=== PATIENT | female | born 1945 | race African-American/Black ===

== ENCOUNTER → 2020-06-03 | Day surgery (SDC) | payer OTHER, MEDICARE ==
--- NOTE | 2020-05-31 16:21 | RAD REPORT ---
EXAM DESCRIPTION: RAD - Chest Pa And Lat (2 Views) - 05/31/2020 4:15 pm CLINICAL HISTORY: pre op Chest pain. COMPARISON: Chest Pa And Lat (2 Views) dated 12/26/2018; Chest Single View dated 10/08/2017; Chest Pa And Lat (2 Views) dated 10/04/2017; Chest Single View dated 10/02/2017 FINDINGS: Pulmonary interstitial markings are prominent bilaterally suspicious for mild interstitial pulmonary edema. The heart is moderately enlarged in size. No displaced fractures. IMPRESSION: Mild to moderate CHF pattern is suspected.
[2020-05-31 17:04] LABS: Basophils % 0.3 % (0-1.3); Hematocrit 35.2 % (36.0-45.0); Lymphocytes % 13.8 % (15.3-44.8); MPV 8.6 fL (7.6-11.3); RBC Red Blood Cell Count 3.36 M/uL (3.86-4.86)
[2020-05-31 17:07] LABS: Protime INR 1.02
[2020-05-31 17:34] LABS: Potassium 3.7 mmol/L (3.5-5.1)
[~2020-06-03] MED LIST: ATROPINE SULF 1 MG/10 ML SYR IV ONE; FENTANYL CITR 100 MCG/2 ML ONE; HEPA 1000U/500MLS 2,000 UNIT/1,000 ML BAG IV ONE; HEPARIN 5000 UNIT/ML 1 ML VIAL ONE; LIDOCAINE 1% 20 ML MDV ONE; MIDAZOLAM HCL 2 MG/2 ML INJ ONE; NA CHLORIDE 0.9% 100 ML IV ONE; NA CHLORIDE 0.9% 500 ML ONE; NICARDIPINE HCL 25 MG/10 ML IV ONE; NITROGLYCERIN 100 MCG/ML SYR (for cath lab use only) IV ONE; NITROGLYCERIN/D5W 25 MG/250 ML BTL IV ONE; ONDANSETRON 4 MG/2 ML VIAL ONE
--- OUTSIDE RECORDS SUMMARY | 2020-06-03 10:08 | XMS REPORT | Clinical Summary ---
:1945 Author Organization [facility] Address [address] [place] [address] Care Team Providers Name Role Phone MD Per Primary Care Provider Allergies Active Allergy Reactions Severity Noted Date Comments Codeine High 09/06/2016 Penicillins High 09/06/2016 Medications Medication Sig Dispensed Refills Start Date End Date Status calcium acetate Take 1,334 mg by 0 Active (PHOSLO) 667 mg mouth 3 (three) capsule times a day with meals. folic acid/vit B Take by mouth. 0 Active complex and C (ALY-HARRISON ORAL) aspirin (ECOTRIN) 81 Take 81 mg by 0 Active MG enteric coated mouth daily. tablet calcium carbonate Chew 1 tablet 0 Active (TUMS) 200 mg calcium daily. (500 mg) chewable tablet Active Problems Problem Noted Date ESRD (end stage renal disease) 2017 MWF 03/12/2018 Last Assessment & Plan: E. Bedside duplex performed by me suggests I have offered continued ergonomic hand exercises or revision of the AVF. I have advised against going to a vein c enter in regards to her swelling. Plan: Continue with ergonomic hand exerc ises for 1 month. Phone check in 1 month, if not better then bilateral arm EMG and arteriograms. Then probably banding. Lymphedema treatments. Chronic obstructive pulmonary disease 02/21/2017 MIHIR (obstructive sleep apnea)- severe 02/21/2017 Morbid obesity 02/21/2017 Pulmonary HTN 09/06/2016 Lymphedema 09/06/2016 Essential hypertension 09/06/2016 Chronic diastolic congestive heart failure 09/06/2016 Encounters Date Type Specialty Care Team Description 01/18/2020 Emergency Emergency Medicine Micah Damico ess of breath (Primary Dx); Fan, MD End stage renal disease on dialysis (HCC) after 06/03/2019 Family History Medical History Relation Name Comments Heart failure Father age 50 Diabetes Mother Hypertension Sister Migraines Sister No Known Problems Sister Relation Name Status Comments Father age 50 Mother Alive pacemaker Sister Alive Sister Alive Sister Alive Social History Tobacco Use Types Packs/Day Years Used Date Never Smoker Smokeless Tobacco: Never Used Alcohol Use Drinks/Week oz/Week Comments Yes occasional wine Sex Assigned at Date Recorded Not on file Job Start Date Occupation Industry Not on file Not on file Not on file Travel History Travel Start Travel End No recent travel history available. Last Filed Vital Signs Vital Sign Reading Time Taken Comments Blood Pressure 116/78 01/18/2020 1:30 PM CDT Pulse 74 01/18/2020 1:30 PM CDT Temperature 36.9 C (98.4 F) 01/18/2020 12:21 PM CDT Respiratory Rate 14 01/18/2020 1:30 PM CDT Oxygen Saturation 93% 01/18/2020 1:30 PM CDT Inhaled Oxygen Concentration - - Weight 127 kg (280 lb) 01/18/2020 12:11 PM CDT Height 157.5 cm (5' 2") 01/18/2020 12:11 PM CDT Body Mass Index 51.21 01/18/2020 12:11 PM CDT Plan of Treatment Health Maintenance Due Date Last Done Comments BREAST CANCER SCREENING 1996 COLONOSCOPY SCREENING 1996 SHINGLES VACCINES (#1) 1996 65+ PNEUMOCOCCAL VACCINE (1 of 2 - PCV13) 2011 INFLUENZA VACCINE 05/18/2020 Implants Implanted Type Area Online Merchandiser Device Shelf Model / Identifier Expiration Serial / Date Lot Catheter Dialysis Glidepath [id number] Symmetric Tip - [id number] Implantable N/A: N/A BARD PERIPHERAL [id number] / Implanted: 10/12/2017 at [facility] (Quantity not on file) In fusion Ports VASCULAR / or Accessories Catheter Dialysis Glidepath [id number] Symmetric Tip - [id number] Implantable N/A: N/A BARD PERIPHERAL [id number] / Implanted: 10/13/2017 at [facility] (Quantity not on file) In fusion Ports VASCULAR / or Accessories Clip Ligtng Jony Hemoclip Plus W/ Tape Ti - [id number] Medica l Clips Left: WECK CLOSURE 10/08/2022 [id number] / Implanted: Qty: 2 on 04/18/2018 by Max Peterson MD at [facility] for Internal Arm, SYSTEMS / Use Upper [id number] Kit Cath Hemodialysys Chronc Prcrv 15.5fr 36cm Dura-Flow - L [id number] Surgical N/A: N/A ANGIODYNAMICS 11/14/2017 [id number] / Implanted: 10/12/2017 at [facility] (Quantity not on file) Implants ; INC / Expanders; [id number] Extenders; Surgical Wires Procedures Procedure Name Priority Date/Time Associated Comments Diagnosis XR CHEST 1 VW PORTABLE STAT 01/18/2020 12:41 R esults for this PM CDT procedure are i n the results section. ECG ED PRELIMINARY Routine 01/18/2020 12:41 Resul ts for this INTERPRETATION PM CDT procedure are in the results section. ESTIMATED GFR STAT 01/18/2020 12:35 Results fo r this PM CDT procedure are i n the results section. COMPREHENSIVE METABOLIC STAT 01/18/2020 12:35 Results for this PANEL PM CDT procedure are i n the results section. HC COMPLETE BLD COUNT STAT 01/18/2020 12:35 Re sults for this W/AUTO DIFF PM CDT procedure are i n the results section. ECG 12-LEAD STAT 01/18/2020 12:16 Results for this PM CDT procedure are i n the results section. after 06/03/2019 Results XR Chest 1 Vw Portable (01/18/2020 12:41 PM CDT) Specimen Narrative Performed At EXAMINATION: XR CHEST 1 VW PORTABLE [facility] CLINICAL HISTORY: SOB COMPARISON: 01/20/2019 IMPRESSION: Heart and mediastinum remain prominent. Central pulmon lovely vascular enlargement again seen. No acute consoli dation noted. RM-PRACWL Procedure Note Hm Interface, Radiology Results Incoming - 01/18/2020 12:47 PM CDT EXAMINATION: XR CHEST 1 VW PORTABLE CLINICAL HISTORY: SOB COMPARISON: 01/20/2019 IMPRESSION: Heart and mediastinum remain prominent. Central pulmonary vascular enlargement again seen. No acute consolidation noted. RM-PRACWL Performing Organization Address City/State/Zipcode Phone Number [facility] [address] [place] [address] ECG ED Preliminary Interpretation - Not an Order (01/18/2020 12:41 PM CDT) Narrative Performed At Micah Damico MD 0 1:25 PM ECG ED Preliminary Interpretation - Not an Order Performed by: Micah Damico MD Authorized by: Micah Damico M D ECG reviewed by ED Physician in the abse nce of a insurance investigator: yes Previous ECG: Previous ECG: Compared to current Comparison ECG info: 01/20/2019 Similarity: No change Interpretation: Interpretation: non-specific Quality: Tracing quality: Limited by artifac t Rate: ECG rate: 83 ECG rate assessment: normal Rhythm: Rhythm: sinus rhythm Ectopy: Ectopy: PVCs QRS: QRS axis: Normal Conduction: Conduction: normal ST segments: ST segments: Normal T waves: T waves: non-specific Estimated GFR (01/18/2020 12:35 PM CDT) Estimated GFR 6 (A) mL/min/1.73 [facility] Comment: m2 [facility] Catergory Units Interpretation [facility] G1 >=90 Normal or high CENTER G2 60-89 Mildly decreased G3a 45-59 Mildly to moderately decreas ed G3b 30-44 Moderately to severely decre ased G4 15-29 Severely decreased G5 <15 Kidney failure The eGFR was calculated using the Chronic Kidney Disea se Epidemiology Collaboration (CKD-EPI) equation. Interpretation is based on recommendations of the National Kidney Foundation-Kidney Disease Outcomes Tyler lity Initiative (NKF-KDOQI) published in 2014. Specimen Performing Organization Address City/State/Zipcode Phone Number DEPARTMENT OF PATHOLOGY AND [facility] [address] [place] [address] [facility] [address] [place], [place] [id number] [place] [address] CBC with platelet and differential (01/18/2020 12:35 PM CDT) Pathologist Sig nature WBC 6.81 4.50 - 11.00 k/uL [facility] RBC 3.25 (L) 4.20 - 5.50 m/uL [facility] HGB 11.0 (L) 12.0 - 16.0 g/dL [facility] HCT 34.3 (L) 37.0 - 47.0 % [facility] MCV 105.5 (H) 82.0 - 100.0 fL [facility] MCH 33.8 27.0 - 34.0 pg [facility] MCHC 32.1 31.0 - 37.0 g/dL [facility] RDW - SD 55.8 (H) 37.0 - 55.0 fL [facility] MPV 9.9 8.8 - 13.2 fL [facility] Platelet count 130 (L) 150 - 400 k/uL [facility] Neutrophils 60.5 39.0 - 69.0 % [facility] Lymphocytes 26.0 25.0 - 45.0 % [facility] Monocytes 8.5 0.0 - 10.0 % [facility] Eosinophils 4.7 0.0 - 5.0 % [facility] Basophils 0.3 0.0 - 1.0 % [facility] Specimen Blood Performing Organization Address City/State/Zipcode Phone Number DEPARTMENT OF PATHOLOGY AND 82[facility]. [address] [place] [address] [facility] [address] Comprehensive metabolic panel (01/18/2020 12:35 PM CDT) Pathologist Sig nature Sodium 140 128 - 145 mEq/L [facility] Potassium 4.0 3.6 - 5.1 mEq/L [facility] CO2 32 18 - 33 mEq/L [facility] Chloride 97 (L) 98 - 108 mEq/L [facility] Glucose 89 73 - 118 mg/dL [facility] Calcium 9.4 8.0 - 10.3 [facility] mg/dL [facility] BUN 37 (H) 7 - 22 mg/dL [facility] Creatinine 7.6 (H) 0.5 - 0.9 mg/dL [facility] Alkaline phosphatase 45 42 - 141 U/L [facility] ALT 16 10 - 47 U/L [facility] AST 17 11 - 38 U/L [facility] Total bilirubin 0.5 0.2 - 1.6 mg/dL [facility] Albumin 3.7 3.3 - 5.5 g/dL [facility] Protein 7.5 6.4 - 8.1 g/dL [facility] Anion gap 11@ANIO 7 - 15 mEq/L [facility] A/G ratio 1.0 0.7 - 3.8 [facility] Specimen Blood Performing Organization Address City/State/Zipcode Phone Number DEPARTMENT OF PATHOLOGY AND [address] [place] [address] [facility] [address] [place] [address] [facility] ECG 12 lead (01/18/2020 12:16 PM CDT) Pathologist Sig nature Ventricular rate 83 [facility]USE Atrial rate 83 [facility] GA interval 156 [facility] QRSD interval 104 [facility] QT interval 408 [facility] QTC interval 479 [facility] P axis 1 65 [facility] QRS axis 1 4 [facility] T wave axis 52 [facility] EKG impression Sinus rhythm with occasional premature ventricular complexes and premature atrial complexes-Nonspecific T wave abnormality-Abnormal ECG-In automated comparison with ECG of 20-JAN-2019 13:10,-premature atrial complexes are now present-Electronically [facility] MUSE Signed By Ramesh Hutchins MD (2016) on 01/18/2020 8:19:42 PM Specimen Narrative Performed At This result has an attachment that is no t available. 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
--- OUTSIDE RECORDS SUMMARY | 2020-06-03 10:08 | XMS REPORT | Continuity of Care Document ---
:1945 Author Organization [facility] t Address 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 2018 MWF 2018 MWF Bedside duplex performed by me suggests I have offered continued ergonomic hand exercises or revision of the AVF. I have advised against going to a vein center in regards to her swelling. Plan: Continue with ergonomic hand exercises for 1 month. Phone check in 1 month, if not better then bilateral arm EMG and arteriogr ams. Then probably banding. Lymphedem a treatment s. Chronic Chronic Disease Active [place] obstructiv obstructiv 02-21 Ma e e 00:00: st pulmonary pulmonary 00 disease disease MIHIR MIHIR Disease Active [place] (obstructi (obstructi 02-21 Me thodi ve sleep ve sleep 00:00: st apnea)- apnea)- 00 severe severe Morbid Morbid Disease Active [place] obesity obesity 02-21 Methodi 00:00: st 00 Pulmonary Pulmonary Disease Active 2015-09 Heather kilgore HTN HTN 11-07 Methodi 00:00: st 00 Lymphedema Lymphedema Disease Active 2015-09 [place] 11-07 Methodi 00:00: st 00 Essential Essential Disease Active 2015-09 Heather kilgore hypertensi hypertensi 11-07 Me thodi on on 00:00: st 00 Chronic Chronic Disease Active 2015-09 [place] diastolic diastolic 11-07 Meth kannan congestive congestive 00:00: st heart heart 00 failure failure Allergies, Adverse Reactions, Alerts Allergy Allergy Status Severity Reaction(s) Onset Inactive Treating Comm ents Source Name Type Date Date Clinician Codeine Propensi Active Severe 2015-09 [place] ty to 11-07 Methodi adverse 00:00: st reaction 00 s to drug Penicill Propensi Active Severe 2015-09 [place] ins ty to 11-07 Methodi adverse 00:00: st reaction 00 s to drug Family History Family Member Diagnosis Comments Start Date Stop Date Source Natural father Heart failure [place] [facility] Natural mother Diabetes [place] Me thodist Natural sister Hypertension [place] [facility] Natural sister Migraines [place] [facility] Natural sister No Known Problems Heather jame Navarro Social History Social Habit Start Date Stop Date Quantity Comments Source Sex Assigned At [place] M ethodist Alcohol intake 2020-01-18 2020-01-18 Current drinker of Luis Armando monet [facility] 00:00:00 00:00:00 alcohol (finding) Alcohol Comment 2016-10-11 2016-10-11 occasional wine [place] el[place] [facility] 00:00:00 00:00:00 Smoking Status Start Date Stop Date Source Never smoker [place] Methodis t Medications Ordered Filled Start Stop Current Ordering Indication Dosage Frequency Signature Comments Components Source Medication Medication Date Date Medication? Clinician (SIG) Name Name calcium Yes 1334mg [id number] Take 1,334 [place] acetate 11-12 [id number] mg by Metho di (PHOSLO) 09:53: 3D mouth 3 st 667 mg 36 (three) capsule times a day with meals. folic Yes Take by [place] acid/vit B 2- mouth. Methodi complex and 09:53: st C 36 (ALY-HARRISON ORAL) aspirin 2018-0 Yes 81mg QD Take 81 mg [place] (ECOTRIN) 2-26 by mouth Method i 81 MG 09:53: daily. st enteric 36 coated tablet calcium 2018-0 Yes 1{tbl} QD Chew 1 [place] n carbonate 2-26 tablet Methodi (TUMS) 200 09:53: daily. st mg calcium 36 (500 mg) chewable tablet Vital Signs Vital Name Observation Time Observation Value Comments Source Systolic blood 2020-01-18 13:30:00 116 mm[Hg] Radha n [facility] pressure Diastolic blood 2020-01-18 13:30:00 78 mm[Hg] Anurag on Rast[facility]ari pressure Heart rate 2020-01-18 13:30:00 74 /min William Navarro Respiratory rate 2020-01-18 13:30:00 14 /min Martín Navarro Oxygen saturation in 2020-01-18 13:30:00 93 /min William Navarro Arterial blood by Pulse oximetry Body temperature 2020-01-18 12:21:00 36.89 Vero Martín Navarro Body height 2020-01-18 12:11:00 157.5 cm William Navarro Body weight 2020-01-18 12:11:00 127.007 kg William Navarro BMI 2020-01-18 12:11:00 51.21 kg/m2 William Navarro Procedures Procedure Date / Time Performing Clinician Source Performed XR CHEST 1 VW PORTABLE 2020-01-18 12:41:56 Geoff Damico ECG ED PRELIMINARY 2020-01-18 12:41:31 Geoff Damico ethodist INTERPRETATION Fan HC COMPLETE BLD COUNT 2020-01-18 12:35:00 Geoff Damico W/AUTO DIFF Fan COMPREHENSIVE METABOLIC 2020-01-18 12:35:00 Geoff Damico PANEL Fan ESTIMATED GFR 2020-01-18 12:35:00 Geoff Damico odjaquan Chavira ECG 12-LEAD 2020-01-18 12:16:47 Geoff Damico Plan of Care Planned Activity Planned Date Details Comments Source Future Scheduled 2020-05-18 INFLUENZA VACCINE Radha Navarro Test 00:00:00 [code = INFLUENZA VACCINE] Future Scheduled 2011 65+ PNEUMOCOCCAL Thomas [facility] Test 00:00:00 VACCINE (1 of 2 - PCV13) [code = 65+ PNEUMOCOCCAL VACCINE (1 of 2 - PCV13)] Future Scheduled 1996 BREAST CANCER Thomas Me thodist Test 00:00:00 SCREENING [code = BREAST CANCER SCREENING] Future Scheduled 1996 COLONOSCOPY SCREENING Luis Armando monet [facility] Test 00:00:00 [code = COLONOSCOPY SCREENING] Future Scheduled 1996 SHINGLES VACCINES (#1) H suki [facility] Test 00:00:00 [code = SHINGLES VACCINES (#1)] Encounters Start End Encounter Admission Attending Care Care Encounter Source Date/Time Date/Time Type Type Clinicians Facility Department ID 2020-01-18 2020-01-18 Emergency [place], [facility] [id number] [place] 00:00:00 00:00:00 GEOFF [address] Results Test Description Test Time Test Comments Results Result Comments Source ECG 12 lead 2020-01-18 20:19:47 Test Item Value Reference Range Interpretation Comme nts Ventricular rate (test code = 253) 83 Atrial rate (test code = 255) 83 [place] interval (test code = 266) 156 QRSD interval (test code = 260) 104 QT interval (test code = 264) 408 QTC interval (test code = 265) 479 P axis 1 (test code = 267) 65 QRS axis 1 (test code = 268) 4 T wave axis (test code = 270) 52 EKG impression (test code = 273) Sinus rhythm with occasional shira ture ventricular complexes and premature atrial complexes-Nonspecific T wave abnormality-Abnormal ECG-In automated comparison with ECG of 20-JAN-2019 13:10,-premature atrial complexes are now present- William NavarroComprehensive metabolic [id number] 13:17:27 Test Item Value Reference Range Interpretation Comments Sodium (test code = 2951-2) 140 128- 145 mEq/L Potassium (test code = 2823-3) 4.0 3.6- 5.1 mEq/L CO2 (test code = 2028-9) 32 18- 33 mEq/L Chloride (test code = 2075-0) 97 98- 108 mEq/L L Glucose (test code = 2345-7) 89 mg/dL 73-118 Calcium (test code = 55263-6) 9.4 mg/dL 8-10.3 BUN (test code = 3094-0) 37 mg/dL 7-22 H Creatinine (test code = 2160-0) 7.6 mg/dL 0.5-0.9 H Alkaline phosphatase (test code = 45 U/L 42-141 6768-6) ALT (test code = 1742-6) 16 U/L 10-47 AST (test code = 1920-8) 17 U/L 11-38 Total bilirubin (test code = 0.5 mg/dL 0.2-1.6 1974-2) Albumin (test code = 1751-7) 3.7 g/dL 3.3-5.5 Protein (test code = 2885-2) 7.5 g/dL 6.4-8.1 Anion gap (test code = 81280-7) 11@ANIO 7- 15 mEq/L A/G ratio (test code = 1759-0) 1.0 0.7-3.8 Lab Interpretation (test code = Abnormal 98354-7) [facility] with platelet and [id number] 13:17:27 Test Item Value Reference Range Interpretation Comments WBC (test code = 99118-5) 6.81 4.50- 11.00 k/uL RBC (test code = 84786-0) 3.25 m/uL 4.2-5.5 L HGB (test code = 718-7) 11.0 g/dL 12-16 L HCT (test code = 4544-3) 34.3 % 37-47 L MCV (test code = 787-2) 105.5 fL 82-100 H MCH (test code = 785-6) 33.8 pg 27-34 MCHC (test code = 786-4) 32.1 g/dL 31-37 RDW - SD (test code = 99243-8) 55.8 fL 37-55 H MPV (test code = 84647-4) 9.9 fL 8.8-13.2 Platelet count (test code = 130 150- 400 k/uL L 46082-0) Neutrophils (test code = 06236-6) 60.5 % 39-69 Lymphocytes (test code = 65142-4) 26.0 % 25-45 Monocytes (test code = 09317-8) 8.5 % 0-10 Eosinophils (test code = 71444-1) 4.7 % 0-5 Basophils (test code = 51833-4) 0.3 % 0-1 Lab Interpretation (test code = Abnormal 67427-0) William MethodistEstimated [id number] 13:17:27 Test Item Value Reference Range Interpretation Comments Estimated GFR (test 6 mL/min/1.73 m2 A Caterg ory Units code = 5488) InterpretationG 1 >=90 Radha l or highG2 60-89 Mildly decrease dG3a 45-59 Mil dly to moderately decr [id number] 30-44 Moderately to s everely decreasedG4 15-29 Severe ly decreasedG5 <15 Kidney neris lureThe eGFR was calcul ated using the [facility] Kidney Disease Epidemiology Collaboration ( CKD-EPI) equation. Interpretation is based on recommendati ons of the National [facility]-Kidn ey Disease Outcome s Quality Initiat martin (NKF-KDOQI) pub lished in 2013. Lab Interpretation Abnormal (test code = 80732-5) William MethodistXR Chest 1 Vw [id number] 12:43:58Hm Interface, Radiology Results - 01/18/2020 12:47 PM CDTEXAMINATION: XR CHEST 1 VW PORTABLECLINICAL HISTORY: SOBCOMPARISON: 01/20/2019IMPRESSION:Heart and mediastinum remain prominent. Central pulmonary vascular enlargement again seen. No acute consolidation noted. [facility] Preliminary Interpretation - Not an [id number] 12:41:31SchGeoff conway MD 01/18/2020 1:25 [facility] [place] Preliminary Interpretation - Not an OrderPerformed by: Geoff Damico MDAuthorized by: Geoff Damico MD ECG reviewed by ED Physician in the absence of a service crew leader: yes Previous ECG: Previous ECG: Compared to current Comparison ECG info: 01/20/2019 Similarity: No changeInterpretation: Interpretation: non-specific Quality: Tracing quality: Limited by artifactRate: ECG rate: 83 ECG rate assessment: normal Rhythm: Rhythm: sinus rhythm Ectopy: Ectopy: PVCs QRS: QRS axis: NormalConduction: Conduction: normal ST segments: ST segments: NormalT waves: T waves: non-specificHouston Rastafari
[2020-06-03 15:42] VITALS: BP 116/46; TEMP 97.8; O2SAT 94
== END | disposition home or self-care (01) ==
LOC: CCL 10:05
PROVIDERS: ATTEND Internal Medicine
DX: I27.20 Pulmonary hypertension, unspecified (principal); I20.0 Unstable angina; I89.0 Lymphedema, not elsewhere classified; N18.6 End stage renal disease; I12.0 Hypertensive chronic kidney disease with stage 5 chronic kidney disease or end stage renal disease; Z99.2 Dependence on renal dialysis; Z20.828 Contact with and (suspected) exposure to other viral communicable diseases; Z88.0 Allergy status to penicillin; Z88.6 Allergy status to analgesic agent; Z82.49 Family history of ischemic heart disease and other diseases of the circulatory system
CPT/HCPCS: 85025; 80048; 36415; 85610; 85730; 71046; 93460; U0002; C1893; C1760; J1644 ×2; J3010; J7040; J2405; J2250